=== PATIENT | female | born 1985 | race Caucasian/White ===

== ENCOUNTER 2018-12-09 07:07 | Day surgery (SDC) | payer OTHER, SELFPAY ==
[2018-12-09] VITALS (8 sets, daily range): BP systolic 102–111; BP diastolic 58–65; PULSE 62–70; RESP 16; TEMP 36.6–36.8; O2SAT 96–100; BMI 36.6
[2018-12-09 08:00] LABS: Hematocrit 38.2 % (37-47); Hemoglobin 12.5 g/dl (12.0-15.0); Mean Corp Hgb Conc 32.7 g/gl (32-36); Mean Corpuscular Hgb 28.8 pg (27.0-32.0); Mean Platelet Vol. 9.3 fl (6.2-12.0); Platelet Count 238 K/mm3 (150-450); RBC Distribution Width CV 12.4 % (11.6-14.6); Red Blood Count 4.34 M/mm3 (4.2-5.4); White Blood Count 5.5 K/mm3 (4.4-11.0)
[2018-12-09 08:05] LABS: Scan Indicated on CBC? Y/N NO
[2018-12-09 08:16] LABS: International Normalized Ratio 1.1; Prothrombin Time (Protime)PT. 13.7 SECONDS (11.7-14.9)
[2018-12-09 08:17] LABS: Partial Thromboplast Time 29.7 Seconds (24.1-36.2)
--- NOTE | 2018-12-09 09:00 | POC_PTH ---
PATIENT: EKATERINA PAINTER LOC: [facility] [place] U#:[id number] AGE/SX: 33/F ROOM: RE12/09/[address]: Dr. Elan Myrick MD : [id number] BED: DIS: 12/09/2018 SPEC #: [id number] RECD: 12/09/18 09:22 STATUS: KATHI IVANIA #: [id number] HERNANDEZ: 12/09/18 09:[address]: Elan Myrick DEPT: SURGICAL PATHOLOGY RECD BY: Krishna Friedman ENTERED: 12/09/18 12:43 SP TYPE: PROD CONC OTHR DR: Dr. Brandon Villaseñor, Tissues: Product of conception, NOS Procedures: Surgery Specimen Level IV HEADER OPERATION: Dilation and curettage, suction PRE-OP DIAGNOSIS: Missed TISSUE SUBMITTED: Products of conception MICROSCOPIC DIAGNOSIS Products of conception: [place], gestational endometrium and immature chorionic villi (products of conception). SJ:lazara 12/12/18 MICROSCOPIC DESCRIPTION Slides are reviewed. GROSS DESCRIPTION Received in fixative is one container labeled with the patient's name and designated products of conception. The specimen consists of multiple pieces of pink hemorrhagic soft tissue mixed with blood clots that in aggregate measure 8 x 8 x 3 cm. No tissue is identified. Teacher'S Aide tissue is submitted in two cassettes. / SJ:rg 12/09/18 TC:5 CPT: 78997
--- NOTE | 2018-12-09 09:20 | PCM.DC.D&C ---
Discharge Diet: No Restrictions Discharge Activity: Return to Normal Activity, May Drive, May Shower Return to work on:: 12/12/18 May shower in (days): 0 May resume sexual activity in: 3 weeks Call your doctor if your incision/area has: Sudden Increased Bleeding, Foul Smelling Discharge Call your doctor if you observe: Fever of 101 or Higher, Inability to urinate, Inability to have a bowel movement, Using more than one pad per hour, Shortness of breath, Chest pain, Calf discomfort, Uncontrolled pain Cleanse incision/area with: Soap & Water Allergies/Adverse Reactions: Allergies No Known Allergies Allergy (Verified 12/09/18 07:27) Medications to take at Discharge Citalopram [Celexa] 40 mg PO DAILY 12/08/18 Hydrocodone/Acetaminophen [[place] 5-325 Tablet] 1 ea PO Q4H PRN PRN 7 Days #10 tab 12/09/18 Ibuprofen 600 mg PO 4X/DAY #30 tab 12/09/18 The following prescriptions were given: Hydrocodone/Acetaminophen [[place] 5-325 Tablet] 1 ea PO Q4H PRN PRN 7 Days #10 tab PRN Reason: strong pain Ibuprofen 600 mg PO 4X/DAY #30 tab Primary Care Physician: Brandon Villaseñor DO [Primary Care Provider] - Test Results: Test results from this visit will be discussed in further detail at your follow-up appointment, if applicable. Please Follow Up With: Elan Myrick MD When: one week Proposed Discharge Date: 12/09/18
--- NOTE | 2018-12-09 09:23 | OP.PCM_ITS ---
Report of Operation Date of Procedure: 12/09/18 Pre-Operative Diagnosis: Missed Post-Operative Diagnosis: Same Surgery/Procedure Performed:: Suction Dilation and Curettage Description of Surgical Findings:: Products of conception consistent with ultrasound findings. Normal appearing cervix. technology and engineering teacher: None Type of Anesthesia:: MAC Anesthesiologist: Gato Galindo Special Medications: none Specimen's removed: Products of conception Drains: none Estimated Blood Loss (mL): 50cc Fluids Replaced: 700cc LR Description of Procedure: Ela was taken to the OR with IV running. She was given two grams of Cefotetan intravenously for surgical prophylaxis. MAC anesthesia was introduced without complication. She was then prepped and draped in the dorsal lithotomy position. A red rubber catheter was then used to drain the bladder. A weighted speculum was then placed in the posterior vagina. The cervix was identified and the anterior lip grasped with a single toothed tenaculum. The cervix was then serially dilated to 30 [place] without difficulty. A #10 suction curette was then placed into the uterine cavity, suction applied and products of conception obtained. A sharp curettage was then performed to a gritty texture throughout. The suction curette was reintroduced and the remaining products of conception obtained. All instruments were then removed from the vagina. Good hemostasis was noted. She was reversed from anesthesia without complication. She was taken to the recovery room in stable condition. Sponge and instrument counts were correct. Blood typing rH positive. Grafts/Implants Used: none - Complications none - Admit VTE Documentation VTE Present on Admission: No VTE Mechan Device Prophylaxis: SCD's VTE Pharm Prophylaxis ordered?: No
== END 2018-12-09 10:48 | disposition home or self-care (01) ==
LOC: SDC 07:09 → AC 07:09
PROVIDERS: Family Provider Family Medicine; PCP Family Medicine; Referring Provider Obstetrics & Gynecology; Visit Provider Obstetrics & Gynecology
PROC: (CPT 59812; principal; 2018-12-09 08:45)
DX: O03.4 Incomplete spontaneous abortion without complication (principal); F32.9 Major depressive disorder, single episode, unspecified
CPT/HCPCS: 59812; 85027; 85610; 85730; 86850; 86900; 88305; J7120; J2405